=== PATIENT | female | born 1935 | race Caucasian/White ===

== ENCOUNTER 2016-12-20 13:00 | Observation (INO) | payer MEDICARE, BC, MEDICAID ==
[~2016-12-20] VITALS: Ht 161.3 cm; Wt 104.7 kg
--- NOTE | ~2016-12-20 | CON ---
PATIENT'S NAME: JIM CHAUDHARY [facility] AGE: 81 Y [address] ROOM: [address] [place], [place] [address] [place] [facility] [place]: 12/20/2016 Consultation DISCHARGE DATE: FAMILY PHYSICIAN: Keyon Shah MD ATTENDING PHYSICIAN: Candy Dash DATE OF CONSULTATION: 12/21/2016 REFERRING PHYSICIAN: Ethan Rhodes MD REFERRING PROVIDER: Keyon Shah MD. REASON FOR CONSULTATION: Anemia. HISTORY OF PRESENT ILLNESS: This is a very pleasant 81-year-old female, who is known to our Gastroenterology Services from her previous hospitalization. The patient was hospitalized in April 2016, and was found to subsequently be anemic. She did undergo full upper endoscopy and colonoscopy completed on 04/24/2016. The patient in regard to her upper endoscopy was found to have antral gastritis as well as polyp. Biopsies were obtained showing erosion and reactive gastropathy. In regard to the colonoscopy, she was found to have large mixed hemorrhoids, 8 mm sessile oozing polyp in the left colon, removed for hot snare as well as mild sigmoid diverticulosis. Polyp did come back as inflammatory pseudopolyp. The patient was seen by her primary care on Tuesday with increasing complaints of shortness of breath. She states on Tuesday, she began having severe shortness of breath as well as approximate 5 pounds weight gain over the 24 hours. She states that the shortness of breath gradually worsened in severity and was worse during exertion. The patient also reported at that time, left leg edema and increased gas and belching. She denied any arlyn abdominal pain, nausea, or vomiting. The patient was evaluated in the clinic and found to have anemia with a hemoglobin of 10.5 and hematocrit of 30.5. The patient also had noted EKG changes in V1 and V2 leads. The patient was admitted to [facility] for further workup. We were asked to see in consultation for the patient's anemia. She denies any arlyn evidence of blood in her stool and/or black tarry melena stool. The patient states she has felt well up until Tuesday. She denies any need for recent blood transfusion. She does take iron at home though cannot recall any recent iron workup. The patient currently denies any chest pain, chest pressure, shortness of breath, fever, or chills. She does have positive weight gain per her statement. PAST MEDICAL HISTORY: Hypertension; hypercholesterolemia; congestive heart failure; atrial PATIENT'S NAME: JIM CHAUDHARY [facility] AGE: 81 Y [address] ROOM: [address] [place], [place] [address] [place] [facility] [place]: 12/20/2016 Consultation DISCHARGE DATE: FAMILY PHYSICIAN: Keyon Shah MD ATTENDING PHYSICIAN: Candy Dash fibrillation, on warfarin; coronary artery disease; valvular disease; pulmonary hypertension; mitral regurgitation; hard of hearing; history of bronchitis; history of pneumonia; osteoarthritis; stress incontinence; history of anemia since dated back to 2013; history of skin cancer of the nose; peripheral neuropathy; and allergic rhinitis. PAST SURGICAL HISTORY: Left total knee arthroplasty, bilateral shoulder surgery, cataract surgery, PTCA with cardiac stent, and intra-ocular lens implant. The patient also reports that her accounting professor did some work on the right leg. PAST SOCIAL HISTORY: The patient lives by herself in [place]. She denies any tobacco or alcohol use. She does have 5 adult children and 17 grand children. 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 FAMILY HISTORY: The patient's mother had diabetes and suffered from lower limb amputation. The patient's father had heart complications. ALLERGIES: ARTHRITIS CREAM. CURRENT MEDICATIONS: Please refer to the medication administration record. REVIEW OF SYSTEMS: All point review of systems were completed. All were negative except for those identified in the History of Present Illness. PHYSICAL EXAMINATION: GENERAL: A very pleasant, 81-year-old female who appears to be in no acute distress. VITAL SIGNS: Temperature 97.8, pulse of 56, respirations of 18, blood pressure 132/57, and oxygen saturations 91% on room air. SKIN: [place], warm, and dry. No jaundice. HEENT: Head is normocephalic and atraumatic. Pupils are equal, round, and reactive to light. Sclerae are clear. Nonicteric. Oral mucosa is pink and moist. No thyromegaly. NECK: Soft and supple. CARDIOVASCULAR: Regular. Normal S1 and S2. RESPIRATORY: Respirations are even and unlabored. LUNGS: Clear to auscultation. ABDOMEN: Soft, round, nontender, and nondistended. Bowel sounds positive x4 quadrants. PATIENT'S NAME: JIM CHAUDHARY [facility] AGE: 81 Y [address] ROOM: [address] [place] [address] [place] [facility] [place]: 12/20/2016 Consultation DISCHARGE DATE: FAMILY PHYSICIAN: Keyon Shah MD ATTENDING PHYSICIAN: Candy Dash MUSCULOSKELETAL: No muscle weakness or atrophy. EXTREMITIES: No clubbing, cyanosis, or edema. NEUROLOGIC: Grossly nonfocal. LABORATORY DATA AND DIAGNOSTIC DATA: Labs and diagnostics as above. Laboratory obtained at [facility] with a recheck this morning of hemoglobin of 10.0 and hematocrit of 29.3. Occult stools are pending. Cardiac enzymes have been within normal limits. ASSESSMENT AND PLAN: Again, this is a very pleasant 81-year-old female with unspecified anemia likely acute on chronic. The patient denies any noticeable evidence of blood within her stool or hematemesis. She recently underwent an upper endoscopy and colonoscopy in April 2016. We will at this point, check iron studies for further evaluation of the patient's anemia. At this point, no further scoping is indicated. We will also await for her occult stools to come back. If positive, possible scoping will be discussed at that time. Thank you for this consult. MAGNOLIA CARROLL APRN FOR MD GILES SHANKAR/modl /[id number] d: 12/21/16 1345 t: 12/24/16 1652, CONSULTATION REPORT
--- NOTE | ~2016-12-20 | CON ---
PATIENT'S NAME: JIM CHAUDHARY [facility] AGE: 81 Y [address] ROOM: [address] [place], [place] [address] LOC[place]: [facility] [place]MIT DATE: 12/20/2016 Consultation DISCHARGE DATE: FAMILY PHYSICIAN: Keyon Shah MD ATTENDING PHYSICIAN: Candy Dash DATE OF CONSULTATION: 12/21/2016 REFERRING PHYSICIAN: Ethan Rhodes MD HISTORY OF PRESENT ILLNESS: A 81-year-old female patient of Dr. Shah. Ms Chaudhary is a 81-year-old female patient who normally lives at home. She was last hospitalized in April 2016 and went home and has been doing reasonably well up until this Tuesday. Between Tuesday and Tuesday she gained about 5 pounds in weight and it stayed about the same on Tuesday and so she was seen by Dr. Shah in his office and was hospitalized. Cardiology consult was sought with Dr. Rhodes and as he is out town, he asked me to see her in consultation. The patient denies any chest pains. She was more interested and had weight gain of 5 pounds overnight on Tuesday night despite not doing anything different as far as her medications and lifestyle are concerned. She did not miss any of her medications and there was no sudden increase in the salt intake. Her increase in weight remained the same on Tuesday and she was seen and was hospitalized. The patient had a history of cardiac catheterization in 2015, which showed coronary artery disease of about 50% or less in her coronaries. The worst was the circumflex to 50%. Her LVEDP was elevated at that time. She had moderate pulmonary hypertension with pulmonary pressures in the upper 50s. Her LV wall was moderately thickened. She carries a diagnosis of chronic mitral stenosis on warfarin for oral anticoagulation and history of diastolic congestive heart failure and mild-to- moderate aortic stenosis by echo in 2016. The patient denies any chest pains. She has been in functional class III for a long time now. She can walk longer distances, if she can lean on the cart or walker at her own pace. She is still in functional class III with no paroxysmal nocturnal dyspnea or orthopnea. Besides increasing her weight, she has not noticed any significant ankle swelling. She denies any palpitations, lightheadedness, dizziness, syncope, or presyncope. MEDICATIONS: Her current list of medications are: 1. Omeprazole 20 mg every morning. 2. Naproxen 500 mg b.i.d. PATIENT'S NAME: JIM CHAUDHARY [facility] AGE: 81 Y [address] ROOM: [place] [id number] LOCATION: [facility] [place] ADMIT DATE: 12/20/2016 Consultation DISCHARGE DATE: FAMILY PHYSICIAN: Keyon Shah MD ATTENDING PHYSICIAN: Candy Dash 3. Metformin 850 b.i.d. 4. Metoprolol 25 b.i.d. 5. Warfarin. 6. Gabapentin 300 mg b.i.d. 7. Aldactone 25 mg a day. 8. Glucosamine chondroitin once a day. 9. Multivitamin once a day. 10. Vitamin E 400 units a day. 11. Potassium gluconate one tablet a day. 12. Ferrous sulfate 325 once a day. 13. Simvastatin 40 mg at bedtime. 14. Albuterol 2 puffs p.r.n. 15. Amlodipine 2.5 mg a day. 16. Lasix 40 mg a day. 17. Calcium carbonate 600 mg a day. 18. Butrans one patch weekly. 19. Acetaminophen 1 g every 6 hours p.r.n. 20. Warfarin 7.5 mg on five days a week and 5 mg two days a week on Tuesday and . ALLERGIES: TROLAMINE SALICYLATES. PAST MEDICAL HISTORY: 1. Obstructive sleep apnea. 2. History of GI bleed. 3. Gastritis. 4. History of left humeral fracture. 5. Constipation. 6. Chronic low back pain. 7. Right sciatic, not helped by steroid injection. 8. Lower leg cellulitis and lower leg edema. 9. Left total knee. 10. Bilateral shoulder surgery. 11. Left cataract surgery. 12. History of PCI with stent placement. SOCIAL HISTORY: The patient lives by herself. She denies abusing alcohol. Her appetite and weight are stable. Sleep is fair. FAMILY HISTORY: No premature coronary artery disease. REVIEW OF SYSTEMS: PATIENT'S NAME: JIM CHAUDHARY [facility] AGE: 81 Y [address] ROOM: [place] [address] LOCATION: [facility] [place]MIT DATE: 12/20/2016 Consultation DISCHARGE DATE: FAMILY PHYSICIAN: Keyon Shah MD ATTENDING PHYSICIAN: Candy Dash A 12-point review of systems reveals: 1. Corrective lenses. 2. Bilateral shoulder surgery. 3. Left hand is numb at times. 4. Itching in her ankles. 5. Bilateral neuropathy. 6. Hay fever. 7. Hardness of hearing. 8. Tiredness. 9. History of bronchitis and pneumonia. 10. Use of BiPAP. 11. Osteoporosis. 12. Constipation. PHYSICAL EXAMINATION: VITAL SIGNS: Her blood pressure is 132/72, heart rate is in the 50s and irregular, respirations 18, afebrile. HEENT: Normal. NECK: Supple with no JVD, thyromegaly, lymphadenopathy, or carotid bruit. PMI is not well located. HEART: First and second heart sounds are irregular. There are no added sounds. She does have a grade 2/6 systolic murmur best heard in the aortic area without any significant conduction. CHEST: Clear to auscultation. ABDOMEN: Soft. EXTREMITIES: Reveal no edema. ASSESSMENT: 1. Shortness of breath secondary to mostly diastolic congestive heart failure. Her catheterization about a year ago really did not reveal any significant abnormalities other than about 50% lesion in the circumflex which was the worst lesion they could find at the time of catheterization. 2. Pulmonary hypertension of moderate degree. 3. Diastolic heart failure. 4. Sleep apnea. 5. History of moderate coronary artery disease. 6. Moderate pulmonary hypertension. RECOMMENDATION: We will recheck her echocardiogram and check her to see if she has elevated BNP and D-dimer for any reasons. Further management will depend on the initial evaluation. PATIENT'S NAME: JIM CHAUDHARY [facility] AGE: 81 Y [address] ROOM: [place] [address] LOCATION: [facility] [place]MIT DATE: 12/20/2016 Consultation DISCHARGE DATE: FAMILY PHYSICIAN: Keyon Shah MD ATTENDING PHYSICIAN: Candy Dash MD ANTONY CHAKRABORTY/aysha /[id number] d: 12/21/16 1352 t: 12/23/16 1030, CONSULTATION REPORT
--- NOTE | ~2016-12-20 | PUL ---
PATIENT'S NAME: JIM CHAUDHARY [facility] AGE: 81 Y [address] ROOM: [facility] [place], [place] [address] [place]ATION: [facility] [place]MIT DATE: 12/20/2016 Pulmonary DISCHARGE DATE: 12/22/2016 FAMILY PHYSICIAN: Keyon Shah MD ATTENDING PHYSICIAN: Candy Dsah NAME OF PROCEDURE: Overnight Pulse Oximetry DATE OF PROCEDURE: December 21 to December 22, 2016 REASON FOR EXAM: Nocturnal hypoxemia RESULTS: The test was performed on room air. The recording time was 6 hours, 36 minutes, and 8 seconds, with a total valid sampling time of 6 hours, 30 minutes and 56 seconds. The highest pulse was 104, lowest pulse was 43, with a mean pulse of 58. The highest SpO2 was 96%, lowest SpO2 was 78%, with a mean SpO2 of 89.1%. The patient spent 2 hours, 33 minutes and 12 seconds with SpO2 less than 89%, representing 39.2% of the total sleep time. The desaturation event index was elevated at 9.1. PHYSICIAN INTERPRETATION: The patient has a significant nocturnal hypoxia and would qualify for supplemental oxygen as per Medicare criteria. However because of her significant nocturnal hypoxia with an elevated desaturation event index a sleep study is suggested at this time. MD ANKITA PAL/rell /[id number] dtt: 12/27/16 0913 SEYMOUR RADU F dtd: 12/26/16 2221
[~2016-12-20 13:00] MED LIST: ALDACTONE25 MG PO; AMOXICILLIN250 MG PO; AMOXIL (BID DO875 MG PO; CENTRUM COMPLE1 EACH PO; COUMADIN ** IA5 MG PO; FEOSOL325 MG PO; GLUCOPHAGE850 MG PO; GLUCOSAMINE1000 MG PO; LASIX40 MG PO; LASIX80 MG PO; LOPRESSOR25 MG PO; NAPROSYN500 MG PO; NEURONTIN100 MG PO; NORVASC2.5 MG PO; POTASSIUM99 M1 PO; PRILOSEC20 MG PO; PROVENTIL OR V6.7 GM INH; VERAPAMIL ER180 MG PO; VITAMIN E400 UNI2 PO; ZOCOR40 MG PO
[2016-12-20] MEDS ORDERED: CALCIUM600 MG PO (15:37)
[2016-12-20] MEDS ORDERED: BUTRANS1 EAC1 TRANS (15:43)
[2016-12-20] MEDS ORDERED: ACETAMINOPHEN500 M1 PO (15:45)
[2016-12-20] MEDS ORDERED: COUMADIN ** IA5 MG PO (16:04)
--- NOTE | 2016-12-20 16:17 | NUR ---
81 Y/O FEMALE ADMITTED FOR SHORTNESS OF BREATH THAT BEGAN ON TUESDAY (3 DAYS AGO), PT DOES STATE THAT SHE HAS GAINED 5-10 LBS SINCE TUESDAY (EVERNIGHT), PT IS A&OX3, WEARS GLASSES & IS HARD OF HEARING. PT ALLERGIES - ASPERCREAM=RASH MEEICAL HISTORY - DMII-ORAL MEDS ONLY, HTN, HIGH CHOL, CHF, A-FIB, CAD, BILAT LOWER LEG EDEMA, ASTHMA, HAYFEVER, BILAT NEUROPATHY, ARTHRITIS, OSTEOPORSIS, LOWER BACK PAIN, HYPOTHYROID, HX SKIN CA ON NOSE (BASAL CELL), STRESS INCONTINANCE, SLEEP APNEA, HOME C PAP, HX BRONCHITIS, PNEUMONIA, NEVER SMOKED OR DRANK. SURGICAL HX - LT TKA, BILAT SHOULDERS, LT CATARACT W/ IOLI, PTCA W/ 1 STENT, RT CTR REPORT GIVEN TO PT PRIMARY CARE NURSE KI RN ADM EDUC DONE
[2016-12-20 20:01] LABS: CPK 92 IU/L (21-215)
--- NOTE | 2016-12-20 20:02 | NUR ---
AAOX3. Cooperative with cares. Up w/SBA, GB, walker. (at home uses walker when walking distances.) VSS, afebrile, on RA. Uses CPAP @NOC but didn't bring it. Regular diet. Tubigrips on bilat LEs. PIV s/l'd to LFA. Daphne/anal areas reddened. Scattered ecchymosis. On tele no calls. Diabetic orally controlled at home. Checks BS x1/day @home.
--- NOTE | 2016-12-21 00:05 | NUR ---
Significant Event: Cares from [id number]. Patient alert and oriented x3. Afebrile, VSS. SUN'AQ Bilaterally. PIV patent and saline locked. HS accucheck 189. CPAP initiated per home setting. NPO at 0000 for GI consult in am. UP with SBA, wheeled walker. Follow up:
[2016-12-21 01:21] LABS: CPK 76 IU/L (21-215)
--- NOTE | 2016-12-21 03:43 | NUR ---
Significant Event:HS Bstffodml=[id number] with no coverage. First 2 sets of cardiac screen labs negative. 3rd set due around 0700. CPAP on at night. Is on telemetry & it shows a-fib & bundle branch block. Ate well for supper. Short of breath with activity. Very hard of hearing. Has been NPO since midnoc for possible GI consult.
[2016-12-21 07:10] LABS: HEMATOCRIT 29.3 % (33.0-46.0)
[2016-12-21 07:24] LABS: CPK 76 IU/L (21-215)
--- NOTE | 2016-12-21 10:41 | NUR ---
Diabetes note 1000 CDE visited with patient briefly, provided Diabetes Management Booklet and Survival Skills Assessment form provided and asked patient to complete. Patient is very hard of hearing, but reports that she is doing "ok" with her diabetes at home and denies needing anything at this time. Will check with patient later today to further assess any educational needs after she completes the form.
--- NOTE | 2016-12-21 11:50 | NUR ---
Introduced self/role to patient. She lives in [place] by herself but her daughter lives a block away. She has a director financial services that comes a few times a month. She has a 4WW and denied need for any additional DME. She denied any barriers to going home or at home. Added my name to her marker board. [id number] Called her daughter Lauren #[phone]. She had no concerns about her mom going home and denied any barriers or needs. Will continue to follow.
--- NOTE | 2016-12-21 14:34 | NUR ---
Diabetes note 1430 Patient has completed the Diabetes Survival Skills checklist and has no further questions at this time. This form is placed on the chart
--- NOTE | 2016-12-21 15:44 | NUR ---
Significant Event: Patient up ad lianne in room. Denies pain. Has had episodes of belching throughout the day. Patient did have BM today--hematest negative. Waiting for lab to come back to call Dr. Shah as patient wanting to go home yet today. Unsure if she will be staying or not. IV to left anterior forearm intact and patent this a.m. Patient currently on room air. Follow up: Continue to monitor.
--- NOTE | 2016-12-22 02:41 | NUR ---
Significant Event: PATIENT IS ALERT AND ORIENTED. [place]. UP AD SRINI BUT USED CALL LIGHT APPROPRIATELY FOR ASSISTANCE THROUGHOUT NIGHT. WEARS CPAP AT HS. TREND OX LAST NIGHT. NEED HEMATEST X2. FIRST WAS NEGATIVE. ACCUCHECKS ACHS. Follow up: PATIENT WISHES TO BE DNR. THERE IS NO ORDER AT THIS TIME.
[2016-12-22 06:05] LABS: BLOOD UREA NITROGEN 23 mg/dL (6-24); CALCIUM 8.5 mg/dL (8.5-10.5); CHLORIDE 108 mMol/L (96-110); CO2 26 mMol/L (22-32); CREATININE 0.8 mg/dL (0.5-1.1); ESTIMATED GFR (MDRD EQUATION) > 60; SODIUM 142 mMol/L (135-145)
--- NOTE | 2016-12-22 13:20 | NUR ---
DISCHARGE: D: ORDERS WERE RECEIVED FOR THE PATIENT TO BE DISCHARGED TODAY. I: DISMISSAL INSTRUCTIONS WERE PREPARED BY THE VIRTUALLY NURSE AND DISCUSSED WITH THE PATIENT AND HER DAUGHTER AT BEDSIDE BY THE PRIMARY NURSE MARLON FRY. THE FOLLOWING WAS PREPARED INCLUDING EDDI TEACHING SHEET PROVIDED: TAKING MEDICINCE TO CONTROL HEART FAILURE, WHAT IS HEART FAILURE, HEART FAILURE-MEDICINES TO HELP YOUR HEART, WARNING SIGNSOF A FLARE UP, MAKING CHANGES IN YOUR DIET, TRACKING YOUR WEIGHT, LIPITOR, TAKING DIGOXIN, AND DIGOXIN. REVIEWED FOLLOW UP APPOINTMENTS AND ALL NEW PRESCRIPTION MEDICATION INCLUDING SIDE EFFECTS. R: THE PATIENT AND FAMILY WILL VERBALIZE UNDERSTANDING OF THE DISMISSAL EDUCAITON. P: THE ABOVE INFORMATION WAS SHARED WITH THE PRIMARY NURSE AND THE CHARGE NURSE. AFTER DISCUSSED THE PATIENT WILL BE READY FOR DISCHARGE.
[2016-12-22] MEDS ORDERED: LIPITOR40 MG PO (15:28)
[2016-12-22] MEDS ORDERED: LANOXIN62.5 MCG PO (15:30)
--- NOTE | 2016-12-22 16:02 | NUR ---
Significant Event: Patient up in room ad lianne with walker. [id number] at bedside. Dr. Shah in this a.m. and said that patient could be dismissed if it was ok with cardiology. Cardiology called around 11:00 a.m. as they had not been here yet and patient was anxious to leave--had to leave a message as no answer. Called Dr. Paz back at 12:[address] Paz said that he did want to see her before she left and that he would be up as soon as he could to see her. Message relayed to the family. Family still very anxious to leave as they were told she was ready to go at [address] Shah was in to see her. Primary nurse had told patient after Dr. Shah left that she could not be dismissed until after cardiology saw her and that Dr. Shah is the one that told nursing this. Dr. Paz here at 1500 and gave ok for patient to be dismissed. Nurse and virtual nurse added Dr. Paz's changes to the dismissal orders and primary nurse reviewed dismissal instructions with the patient and her [id number] as patient was unable to hear the virtual nurse. Follow-up appointments, changes in medications, and education on CHF all sent with patient in dismissal paperwork in addition to the prescriptions for the new medications. Patient verbalized understanding of dismissal orders and signed dismissal paperwork. Patient taken to the front doors for dismissal in a wheel chair by COIN COLLECTOR. [id number] was driving patient home.
== END 2016-12-22 16:00 | disposition disaster alternative care site (69) ==
LOC: EDSTATUS 13:00 → GMSU 13:19
PROVIDERS: Family Medicine; ADMIT Family Medicine
DX: R06.02 Shortness of breath (principal); D64.9 Anemia, unspecified; J45.909 Unspecified asthma, uncomplicated; K21.9 Gastro-esophageal reflux disease without esophagitis; E78.2 Mixed hyperlipidemia; E78.1 Pure hyperglyceridemia; G47.33 Obstructive sleep apnea (adult) (pediatric); Z99.89 Dependence on other enabling machines and devices; M19.90 Unspecified osteoarthritis, unspecified site; E11.42 Type 2 diabetes mellitus with diabetic polyneuropathy; E11.22 Type 2 diabetes mellitus with diabetic chronic kidney disease; I13.0 Hypertensive heart and chronic kidney disease with heart failure and stage 1 through stage 4 chronic kidney disease, or unspecified chronic kidney disease; N18.3 Chronic kidney disease, stage 3 (moderate); I50.30 Unspecified diastolic (congestive) heart failure; Z98.890 Other specified postprocedural states; I48.2 Chronic atrial fibrillation; E78.00 Pure hypercholesterolemia, unspecified; Z88.8 Allergy status to other drugs, medicaments and biological substances; Z79.01 Long term (current) use of anticoagulants; Z79.899 Other long term (current) drug therapy; I27.2 Other secondary pulmonary hypertension
CPT/HCPCS: C9113; G0378; G0379

== ENCOUNTER → 2016-12-28 | Outpatient (CLI) | payer MEDICARE, BC, MEDICAID ==
[~2016-12-28] MED LIST changes: +ACETAMINOPHEN500 M1 PO; +BUTRANS1 EAC1 TRANS; +CALCIUM600 MG PO; +LANOXIN62.5 MCG PO; +LIPITOR40 MG PO
[2016-12-28 14:47] LABS: HEMATOCRIT 33.4 % (33.0-46.0); HEMOGLOBIN 11.2 g/dL (10.0-15.0)
[2016-12-28 15:10] LABS: ALBUMIN 3.9 gm/dL (3.5-5.0); ANION GAP 13.6 (10.0-19.0); CALCIUM 8.8 mg/dL (8.5-10.5); CREATININE 1.1 mg/dL (0.5-1.1); PHOSPHORUS 3.1 mg/dL (2.5-4.9); POTASSIUM 3.6 mMol/L (3.7-5.1)
== END | disposition disaster alternative care site (69) ==
LOC: LCNC 14:42
PROVIDERS: Internal Medicine Interventional Cardiology
DX: I48.2 Chronic atrial fibrillation (principal); R53.82 Chronic fatigue, unspecified; Z79.01 Long term (current) use of anticoagulants

== ENCOUNTER → 2017-01-04 | Outpatient (CLI) | payer MEDICARE, BC, MEDICAID ==
[2017-01-04 11:03] LABS: INR - (THERAPEUTIC) 1.94 (0.92-1.07); PROTIME 20.5 SECONDS (9.8-11.4)
== END | disposition disaster alternative care site (69) ==
LOC: LCNC 10:53
PROVIDERS: Internal Medicine Interventional Cardiology
DX: I48.2 Chronic atrial fibrillation (principal)

== ENCOUNTER 2017-01-09 08:43 | Emergency (ER) | payer MEDICARE, BC, MEDICAID ==
--- NOTE | ~2017-01-09 | ER ---
PATIENT'S NAME: JIM CHAUDHARY [facility] AGE: 81 Y [address] ROOM: [place] [address] LOCATION: [facility] ADMIT DATE: 01/09/2017 ER/Outpatient Report DISCHARGE DATE: 01/09/2017 FAMILY PHYSICIAN: Keyon Shah MD ATTENDING PHYSICIAN: Paul Manning CHIEF COMPLAINT AND HISTORY OF PRESENT ILLNESS: Difficulty breathing and discomfort in the upper abdomen and chest region. The symptoms started this morning, but it sounds like they have been somewhat persistent of late. She was recently hospitalized and also has had some pulmonary testing done as well. She denies any fevers or chills. No cough or recent weight gain or loss. She initially does not give much cardiac history; however, review of the records indicate she has extensive coronary artery disease in addition to right heart failure secondary to pulmonary hypertension as well as diabetes. She also has some reactive airway disease and chronic atrial fibrillation, on anticoagulation. PAST MEDICAL HISTORY: Documented on the record and reviewed by me. SOCIAL HISTORY: Documented on the record and reviewed by me. MEDICATIONS: Documented on the record and reviewed by me. ALLERGIES: DOCUMENTED ON THE RECORD AND REVIEWED BY ME. REVIEW OF SYSTEMS: All systems reviewed and negative except as noted in the HPI. PHYSICAL EXAMINATION: VITAL SIGNS: Blood pressure 135/66, pulse 74, respiratory rate is 22, temperature 98.6, and SpO2 is 95% on room air. Pain is rated 4/10. GENERAL: An age-appropriate female in no obvious pain or distress, recumbent on the exam table. NEUROLOGIC: Awake and alert. GCS 15. No focal deficits. No asymmetry. HEENT: Normocephalic, atraumatic. Eyes are PERRL. Oropharynx is clear. NECK: Supple. Trachea is midline. CHEST: Heart has a regular rate and rhythm with no murmurs. Lungs are clear to auscultation bilaterally. No rhonchi, wheezes, or rales. ABDOMEN: Soft, nontender, and nondistended. No rebound or guarding. BACK: Normal to inspection and palpation. EXTREMITIES: Warm and well perfused. Trace edema at the ankles bilaterally. PATIENT'S NAME: JIM CHAUDHARY [facility] AGE: 81 Y [address] ROOM: [place] [address] LOCATION: [facility] ADMIT DATE: 01/09/2017 ER/Outpatient Report DISCHARGE DATE: 01/09/2017 FAMILY PHYSICIAN: Keyon Shah MD ATTENDING PHYSICIAN: Paul Manning SKIN: Clean, dry, and intact. LABORATORY AND DIAGNOSTIC DATA: Chest x-ray unremarkable per my review, radiology review is pending. EKG initial without comparison is notable for some prior cardiac stress. No clear ischemic events. Intervals otherwise appropriate. Left axis. Repeat EKG is stable. Initial and repeat troponins are below detectable threshold. CK-MB initially 1.9, down to 1.8. CMS with no appreciable abnormalities. Free T4 and TSH 1.1 and 2.75 respectively. The proBNP is 1144, down from 1300. CBC: White count is 5.1, hemoglobin 11.4, and platelets of 164. INR is 1.7. Lactate is 2.8. IMPRESSION: Shortness of breath with some chest discomfort with nausea. EMERGENCY DEPARTMENT COURSE: The patient was seen and evaluated as above. She was given Zofran with near- complete resolution of her symptoms. It is unclear whether or not this would be ACS. Not consistent with PE. She was given some Zofran which improved all of her symptoms. She did intermittently become hypoxic which, based on review of records, is consistent with how she has been in the past. It is unclear why she has not qualified for home O2, although there is a sleep study pending. She did not desaturate significantly on a walking desaturation test. I was unable to secure home O2 for her. I discussed the case with Dr. Patterson representing primary care provider for Dr. Shah. The patient should see Dr. Shah tomorrow in clinic. The patient is amenable to followup and plan. Return to ER immediately if there is any worsening of symptoms. MD CARLA SQUIRES/aysha /[id number] d: 01/09/17 1832 t: 01/25/1709, OUTPATIENT REPORT
[2017-01-09 09:34] LABS: BASOPHIL % 0.4 %; EOSINOPHIL # 0.1 K/uL (0.0-0.5); EOSINOPHIL % 2.2 %; HEMATOCRIT 32.8 % (33.0-46.0); HEMOGLOBIN 11.4 g/dL (10.0-15.0); IMMATURE GRANULOCYTE % 0.6 %; LYMPHOCYTE % 19.3 %; MCH 34.4 pg (27.0-34.0); MCHC 34.8 gm/dL (32.0-36.5); MCV 99.1 fl (83.0-98.0); MONOCYTE # 0.4 K/uL (0.0-1.0); MONOCYTE % 7.9 %; MPV 10.5 fl (9.4-12.4); NEUTROPHIL # (ANC) 3.6 K/uL (1.8-7.8); NEUTROPHIL % 69.6 %; NRBC % 0 /100WBC (0-0.00); PLATELET COUNT 164 K/uL (150-450); RBC 3.31 M/uL (3.50-5.50); RDW-CV 16.2 % (11.9-14.6); WBC 5.1 K/uL (4.0-11.0)
[2017-01-09 09:43] LABS: INR - (THERAPEUTIC) 1.69 (0.92-1.07); PROTIME 17.8 SECONDS (9.8-11.4); PTT 33 SECONDS (25-32)
[2017-01-09 09:56] LABS: ALBUMIN 3.5 gm/dL (3.5-5.0); ALK PHOS 65 IU/L (33-138); ALT 22 IU/L (12-78); ANION GAP 13.2 (10.0-19.0); AST 13 IU/L (10-40); BLOOD UREA NITROGEN 23 mg/dL (6-24); CHLORIDE 105 mMol/L (96-110); CO2 26 mMol/L (22-32); CPK 75 IU/L (21-215); CREATININE 0.9 mg/dL (0.5-1.1); POTASSIUM 4.2 mMol/L (3.7-5.1); SODIUM 140 mMol/L (135-145); TOTAL BILIRUBIN 1.5 mg/dL (0.0-1.5); TOTAL PROTEIN 6.9 g/dL (6.0-8.4)
[2017-01-09 11:33] LABS: CPK 72 IU/L (21-215)
== END 2017-01-09 11:48 | disposition disaster alternative care site (69) ==
LOC: GMED 08:43
PROVIDERS: Emergency Medicine
DX: R07.89 Other chest pain (principal); I11.0 Hypertensive heart disease with heart failure; I50.9 Heart failure, unspecified; E11.9 Type 2 diabetes mellitus without complications; R06.02 Shortness of breath; R11.0 Nausea; E78.5 Hyperlipidemia, unspecified; J45.909 Unspecified asthma, uncomplicated; D64.9 Anemia, unspecified; I48.91 Unspecified atrial fibrillation; K21.9 Gastro-esophageal reflux disease without esophagitis; Z79.84 Long term (current) use of oral hypoglycemic drugs; Z79.01 Long term (current) use of anticoagulants; Z98.890 Other specified postprocedural states
CPT/HCPCS: J2405

== ENCOUNTER 2017-01-24 20:24 | Emergency (ER) | payer MEDICARE, BC ==
--- NOTE | ~2017-01-24 | ER ---
PATIENT'S NAME: JIM CHAUDHARY [facility] AGE: 81 Y [address] ROOM: [place] [id number] LOCATION: ED ADMIT DATE: 01/24/2017 ER/Outpatient Report DISCHARGE DATE: 01/24/2017 FAMILY PHYSICIAN: Keyon Shah MD ATTENDING PHYSICIAN: Roel Christianson SEEN AT: 2045 hours. CHIEF COMPLAINT: Nausea. HISTORY OF PRESENT ILLNESS: The patient is a 81-year-old female who presents with her daughter, complaining of nausea which started about 2 weeks ago. The patient denied any abdominal pain. No vomiting. No change in bowel habits. ALLERGIES: NO ALLERGIES. CURRENT MEDICATIONS: See copied list, which was reviewed. MEDICAL HISTORY: Includes [id number] diabetes, hypothyroidism, hypertension, congestive heart failure, and atrial fibrillation. SOCIAL HISTORY: Nonsmoker. Denies alcohol use. REVIEW OF SYSTEMS: GENERAL: No complaints of fevers or chills. HEAD/EENT: Has some hearing loss. Denies sore throat. RESPIRATORY: No cough or wheezing. Denies any orthopnea or PND. CARDIOVASCULAR: History of chronic atrial fibrillation. No recent chest pain. Denies any palpitations. GASTROINTESTINAL: Nausea for 2 to 3 weeks. No diarrhea. No change in bowel habits. GENITOURINARY: No flank pain. No dysuria. MUSCULOSKELETAL: Has some edema in both ankles. No calf pain or tenderness. PHYSICAL EXAMINATION: VITAL SIGNS: Her blood pressure 167/79, her temperature is 98.4, respiratory rate 24, pulse 62, and her O2 saturations 93%. GENERAL APPEARANCE: White female. She is oriented x3. PATIENT'S NAME: JIM CHAUDHARY [facility] AGE: 81 Y [address] ROOM: [place] [address] LOCATION: ED ADMIT DATE: 01/24/2017 ER/Outpatient Report DISCHARGE DATE: 01/24/2017 FAMILY PHYSICIAN: Keyon Shah MD ATTENDING PHYSICIAN: Roel Christianson HEAD/EENT: Head: Normocephalic. Eyes: PERRLA. No icterus. Nose: Septum midline. Mouth: Tongue was somewhat dry. Posterior pharynx was clear. NECK: No adenopathy. No jugular venous distention. LUNGS: Had good breath sounds bilaterally. No significant rales. HEART: Heart tones appeared distant, somewhat irregular. ABDOMEN: Soft. There is no guarding. No rebound. Bowel sounds present. EXTREMITIES: She had 1 or 2+ edema at her ankles. She has had no weight change. LABORATORY DATA AND X-RAYS: EKG showed atrial fibrillation with slow rate, some question of some possible anterolateral ischemia. EKG was over read by Dr. Christianson. Her digoxin level was 0.47, which was subtherapeutic. CBC: White count of 4.7, hemoglobin 11.3, and ANC 2.9. Her PTT was slightly elevated at 38. Her pro-time 31.4. INR was 2.96, but she is on Coumadin. CMS: Glucose 145. Her BUN slightly elevated at 26. Her total bilirubin was slightly elevated at 2.1, however, alkaline phosphatase was normal and her liver enzymes were normal. Her proBNP was elevated at 1576. Her magnesium was 1.7. Her CPK 88. Her CK-MB was 1.8. Troponin was less than 0.040. Chest x-ray shows some possible pulmonary fibrosis, which has been present in the past, also could probably represent some early congestive heart failure. ASSESSMENT: 1. Nausea. 2. Atrial fibrillation, requiring anticoagulation. 3. Congestive heart failure. 4. Hypothyroidism. 5. Non-insulin dependent diabetes mellitus. 6. Hypertension. PLAN: The patient was given Zofran here in the emergency room 4 mg. Strongly recommend that she see Dr. Shah tomorrow concerning her nausea. We did send her home with a script for Zofran 4 mg to take one every 6 hours. TANVIR HINKLE FOR MD TOPHER BURTON/aysha /[id number] d: 01/25/17 0144 t: 01/31/17 1217, OUTPATIENT REPORT
[2017-01-24 21:12] LABS: BASOPHIL % 0.6 %; EOSINOPHIL # 0.2 K/uL (0.0-0.5); EOSINOPHIL % 3.4 %; HEMATOCRIT 32.8 % (33.0-46.0); HEMOGLOBIN 11.3 g/dL (10.0-15.0); IMMATURE GRANULOCYTE % 0.2 %; LYMPHOCYTE # 1.2 K/uL (0.8-4.0); LYMPHOCYTE % 25.1 %; MCH 34.2 pg (27.0-34.0); MCHC 34.5 gm/dL (32.0-36.5); MCV 99.4 fl (83.0-98.0); MONOCYTE # 0.5 K/uL (0.0-1.0); MPV 10.6 fl (9.4-12.4); NEUTROPHIL # (ANC) 2.9 K/uL (1.8-7.8); NEUTROPHIL % 60.7 %; NRBC % 0 /100WBC (0-0.00); PLATELET COUNT 156 K/uL (150-450); WBC 4.7 K/uL (4.0-11.0)
[2017-01-24 21:23] LABS: PTT 38 SECONDS (25-32)
[2017-01-24 21:26] LABS: INR - (THERAPEUTIC) 2.96 (0.92-1.07); PROTIME 31.4 SECONDS (9.8-11.4)
[2017-01-24 21:31] LABS: ALBUMIN 3.8 gm/dL (3.5-5.0); ALK PHOS 46 IU/L (33-138); ALT 25 IU/L (12-78); ANION GAP 13.9 (10.0-19.0); AST 17 IU/L (10-40); BLOOD UREA NITROGEN 26 mg/dL (6-24); CALCIUM 8.6 mg/dL (8.5-10.5); CHLORIDE 107 mMol/L (96-110); CO2 27 mMol/L (22-32); CPK 88 IU/L (21-215); MAGNESIUM 1.7 mg/dL (1.8-2.6); POTASSIUM 3.9 mMol/L (3.7-5.1); SODIUM 144 mMol/L (135-145); TOTAL BILIRUBIN 2.1 mg/dL (0.0-1.5)
== END 2017-01-24 22:52 | disposition disaster alternative care site (69) ==
LOC: GMED 20:24
PROVIDERS: Emergency Medicine
DX: R11.0 Nausea (principal); I48.91 Unspecified atrial fibrillation; I11.0 Hypertensive heart disease with heart failure; I50.9 Heart failure, unspecified; E03.9 Hypothyroidism, unspecified; E11.9 Type 2 diabetes mellitus without complications; Z79.84 Long term (current) use of oral hypoglycemic drugs; Z79.899 Other long term (current) drug therapy

== ENCOUNTER → 2017-01-27 | Outpatient (CLI) | payer MEDICARE, BC | END | disposition disaster alternative care site (69) | LOC: GRAD 10:26 | DX: R10.9 Unspecified abdominal pain (principal) | CPT/HCPCS: A9541 ==